=== PATIENT | male | born 1990 | race Two or more races ===

== ENCOUNTER 2018-04-19 17:07 | Emergency (ER) | payer SELFPAY ==
[~2018-04-19] VITALS: Ht 157.5 cm; Wt 65.3 kg
[2018-04-19] MEDS ORDERED: NAPROXEN 500 MG TABLET PO STA (17:31)
--- NOTE | 2018-04-19 17:38 | PHYS DOC ---
Adult General Chief Complaint Chief Complaint: FLANK PAIN HPI HPI Patient is a 27 year old [place]-speaking male with no significant medical history who presents to the ED today complaining of a pressure-like 10 out of 10 bilateral low back pain nonradiating in nature that began 3 days ago. Patient denies any injury. Denies any numbness or tingling to bilateral lower extremities. Denies any loss of bowel bladder function. He states the pain is worse on sitting and sometimes walking. Stunt Double line was used for [place]. Review of Systems Review of Systems Constitutional: Denies fever or chills [] Eyes: Denies change in visual acuity, redness, or eye pain [] HENT: Denies nasal congestion or sore throat [] Respiratory: Denies cough or shortness of breath [] Cardiovascular: No additional information not addressed in HPI [] GI: Denies abdominal pain, nausea, vomiting, bloody stools or diarrhea [] : Denies dysuria or hematuria [] Musculoskeletal: Reports bilateral low back pain Integument: Denies rash or skin lesions [] Neurologic: Denies headache, focal weakness or sensory changes [] All other systems were reviewed and found to be within normal limits, except as documented in this note. Current Medications Current Medications Current Medications Medications (Trade) Dose Ordered Sig/Reena Start Time Stop Time Status Last Admin Dose Admin Acetaminophen/ Hydrocodone Bitart (Lortab 5/325) 2 tab 1X ONCE 04/19/18 17:45 04/19/18 17:46 DC 04/19/18 18:04 2 TAB Cyclobenzaprine HCl (Flexeril) 10 mg 1X ONCE 04/19/18 17:45 04/19/18 17:46 DC 04/19/18 18:03 10 MG Naproxen (Naprosyn) 500 mg 1X STAT 04/19/18 17:31 04/19/18 17:33 DC 04/19/18 18:04 500 MG Allergies Allergies Allergies Coded Allergies Type Severity Reaction Last Updated Verified No Known Drug Allergies 04/19/18 No Physical Exam Physical Exam Constitutional: Well developed, well nourished, no acute distress, non-toxic appearance. [] HENT: Normocephalic, atraumatic, bilateral external ears normal, oropharynx moist, no oral exudates, nose normal. [] Eyes: PERRLA, EOMI, conjunctiva normal, no discharge. [] Neck: Normal range of motion, no tenderness, supple, no stridor. [] Cardiovascular:Heart rate regular rhythm, no murmur [] Lungs & Thorax: Bilateral breath sounds clear to auscultation [] Abdomen: Bowel sounds normal, soft, no tenderness, no masses, no pulsatile masses. [] Skin: Warm, dry, no erythema, no rash. [] Back: Tenderness diffusely throughout the lumbar spine with mild midline lumbar spine tenderness, no CVA tenderness. Negative bilateral straight leg raises Extremities: No tenderness, no cyanosis, no clubbing, ROM intact, no edema. [] Neurologic: Alert and oriented X 3, normal motor function, normal sensory function, no focal deficits noted. [] Psychologic: Affect normal, judgement normal, mood normal. [] Current Patient Data Vital Signs Vital Signs Date Time Temp Pulse Resp B/P (MAP) Pulse Ox O2 Delivery O2 Flow Rate FiO2 04/19/18 18:04 18 97 Room Air 04/19/18 17:23 98.3 73 133/77 (95) 98.3 Lab Values Laboratory Tests Test 04/19/18 17:52 Urine Collection Type Unknown Urine Color Yellow Urine Clarity Clear Urine pH 6.5 Urine Specific [place] 1.025 Urine Protein Negative mg/dL (NEG-TRACE) Urine Glucose (UA) Negative mg/dL (NEG) Urine Ketones (Stick) Negative mg/dL (NEG) Urine Blood Negative (NEG) Urine Nitrite Negative (NEG) Urine Bilirubin Negative (NEG) Urine Urobilinogen Dipstick 1.0 mg/dL (0.2 mg/dL) Urine Leukocyte Esterase Negative (NEG) Urine RBC 0 /HPF (0-2) Urine WBC 0 /HPF (0-4) Urine Squamous Epithelial Cells Occ /LPF Urine Bacteria 0 /HPF (0-FEW) Urine Mucus Slight /LPF EKG EKG [] Radiology/Procedures Radiology/Procedures []PROCEDURE: CT LUMBAR SPINE WO CONTRAST PQRS Compliance Statement: One or more of the following individualized dose reduction techniques were utilized for this examination: 1. Automated exposure control 2. Adjustment of the mA and/or kV according to patient size 3. Use of iterative reconstruction technique CT lumbar spine without contrast April 19, 2018 INDICATION: Low back pain for 3 days. COMPARISON: None available TECHNIQUE: Helical axial CT images of the lumbar spine were obtained without intravenous contrast. Coronal and sagittal reformats are provided. FINDINGS: There is minimal anterolisthesis of L5 on S1. There is no spondylolysis. Vertebral body heights are maintained. There is mild to moderate disc height loss at L5-S1 with vacuum disc phenomena. Abdominal aorta is normal in caliber. Visualized portions of the retroperitoneum appear normal. Sacrum is intact. There is no acute fracture. At L4-L5, there is a mild disc bulge with mild facet arthropathy with ligamentum flavum infolding. There is mild bilateral neuroforaminal stenosis. Mild spinal canal stenosis. 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 At L5-S1, there is a posterior disc osteophyte complex with moderate facet arthropathy resulting in moderate bilateral neuroforaminal stenosis. IMPRESSION: Degenerative changes of the lumbar spine are present, as described in detail above. There is minimal anterolisthesis of L5 on S1 likely secondary to degenerative facet arthropathy. No spondylolysis. Electronically signed by: Elgin Escalona MD (04/19/2018 6:06 PM) [facility] DICTATED and SIGNED BY: ELGIN ESCALONA MD DATE: 04/19/181803 Course & Med Decision Making Course & Med Decision Making Pertinent Labs and Imaging studies reviewed. (See chart for details) This is a 27-year-old male patient presenting to the ED today with bilateral low back pain for 3 days, no known injury. Urine analysis is negative for blood or infection. CT of the lumbar spine noted for DJD otherwise no acute findings. Patient was given hydrocodone, naproxen, cyclobenzaprine. He states his pain has decreased. He has no cauda equina syndrome symptoms. He was provided a neurosurgeon and instructed to follow-up as an outpatient. Dragon Disclaimer Dragon Disclaimer This electronic medical record was generated, in whole or in part, using a voice recognition dictation system. Departure Departure Impression: Primary Impression: Back pain Additional Impression: DJD (degenerative joint disease), lumbar Disposition: 01 HOME, SELF-CARE Condition: STABLE Referrals: ANGELITO PENDLETON MD follow up in 1 week Patient Instructions: Arthritis, Degenerative-Brief, Back Pain, Adult Additional Instructions: You were evaluated for low back pain in the emergency room and noted to have arthritis in your back. Take the prescribed medications as ordered. Follow-up with the primary care doctor or the provided neurosurgeon in the next 1-2 weeks. Scripts Hydrocodone/Apap 5-325 (NORCO 5-325 TABLET) 1 Each Tablet 1 TAB PO Q6HRS, #20 TAB Prov: JOELLE HERNANDEZ APRN 04/19/18 Methylprednisolone (MEDROL) 4 Mg Tab.ds.pk 1 PKG PO UD, #1 PKG Prov: JOELLE HERNANDEZ APRN 04/19/18 Cyclobenzaprine Hcl (CYCLOBENZAPRINE HCL) 10 Mg Tablet 1 TAB PO TID, #90 TAB Prov: JOELLE HERNANDEZ APRN 04/19/18 Meloxicam (MELOXICAM) 7.5 Mg Tablet 1 TAB PO DAILY, #30 TAB 2 Refills Prov: JOELLE HERNANDEZ APRN 04/19/18 Problem Qualifiers Primary Impression: Back pain Back pain location: low back pain Chronicity: acute Back pain laterality: bilateral Sciatica presence: without sciatica Qualified Codes: M54.5 - Low back pain Additional Impression: DJD (degenerative joint disease), lumbar Spinal osteoarthritis complication: unspecified spinal osteoarthritis Qualified Codes: M47.816 - Spondylosis without myelopathy or radiculopathy, lumbar region JOELLE HERNANDEZ APRN Apr 19, 2018 17:38
[2018-04-19] MEDS ORDERED: HYDROcodone/APAP 5/325MG 1 TAB TABLET PO ONE (17:45)
[2018-04-19] MEDS ORDERED: CYCLOBENZAPRINE 10 MG TABLET. PO ONE (17:45)
--- NOTE | 2018-04-19 18:09 | RAD ---
PQRS Compliance Statement: One or more of the following individualized dose reduction techniques were utilized for this examination: 1. Automated exposure control 2. Adjustment of the mA and/or kV according to patient size 3. Use of iterative reconstruction technique CT lumbar spine without contrast April 19, 2018 INDICATION: Low back pain for 3 days. COMPARISON: None available TECHNIQUE: Helical axial CT images of the lumbar spine were obtained without intravenous contrast. Coronal and sagittal reformats are provided. FINDINGS: There is minimal anterolisthesis of L5 on S1. There is no spondylolysis. Vertebral body heights are maintained. There is mild to moderate disc height loss at L5-S1 with vacuum disc phenomena. Abdominal aorta is normal in caliber. Visualized portions of the retroperitoneum appear normal. Sacrum is intact. There is no acute fracture. At L4-L5, there is a mild disc bulge with mild facet arthropathy with ligamentum flavum infolding. There is mild bilateral neuroforaminal stenosis. Mild spinal canal stenosis. 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 At L5-S1, there is a posterior disc osteophyte complex with moderate facet arthropathy resulting in moderate bilateral neuroforaminal stenosis. IMPRESSION: Degenerative changes of the lumbar spine are present, as described in detail above. There is minimal anterolisthesis of L5 on S1 likely secondary to degenerative facet arthropathy. No spondylolysis. Electronically signed by: Edilia Escalona MD (04/19/2018 6:06 PM) [facility]
[2018-04-19 18:48] LABS: BILIRUBIN,URINE NEGATIVE (NEG); CLARITY,URINE CLEAR; COLOR,URINE YELLOW; NITRITE,URINE NEGATIVE (NEG); PH,URINE 6.5; PROTEIN,URINE NEGATIVE (NEG-TRACE)
[2018-04-19 18:57] LABS: BACTERIA,URINE 0 /HPF (0-FEW); RBC,URINE 0 /HPF (0-2); SQUAMOUS EPITHELIAL CELL,UR OCC /LPF; WBC,URINE 0 /HPF (0-4)
[2018-04-19 19:05] VITALS: BP 120/68
[2018-04-19] MEDS ORDERED: CYCL10TA2 PO (19:13)
[2018-04-19] MEDS ORDERED: MELO7.5T29 PO (19:13)
[2018-04-19] MEDS ORDERED: METH4TAB2 PO (19:13)
[2018-04-19] MEDS ORDERED: HYDR-3164 PO (19:13)
== END 2018-04-19 19:28 | disposition home or self-care (01) ==
LOC: ER 17:07
DX: M47.816 Spondylosis without myelopathy or radiculopathy, lumbar region (principal)
CPT/HCPCS: 72131; 81001; 99284-25